=== PATIENT | male | born 1965 | race Two or more races ===

== ENCOUNTER 2018-12-02 19:42 | Emergency (ER) | payer OTHER ==
[~2018-12-02] VITALS: Ht 180.3 cm; Wt 103.0 kg
[2018-12-02 23:52] VITALS: BP 135/85
== END 2018-12-02 23:52 | disposition home or self-care (01) ==
LOC: ED 19:42
DX: G47.00 Insomnia, unspecified (principal); F41.9 Anxiety disorder, unspecified; E11.9 Type 2 diabetes mellitus without complications; F17.210 Nicotine dependence, cigarettes, uncomplicated; F32.9 Major depressive disorder, single episode, unspecified

== ENCOUNTER 2021-01-22 10:42 | Emergency (ER) | payer OTHER ==
[~2021-01-22] VITALS: Ht 185.4 cm; Wt 103.0 kg
[2021-01-22 10:52] VITALS: Ht 185.4 cm; Wt 103.0 kg
[2021-01-22 11:28] LABS: PLATELET COUNT 352 x10^3mcL (152-348); RED CELL DISTRIBUTION WIDTH 14.4 % (12.1-16.2)
[2021-01-22 11:45] LABS: CALCIUM 9.1 mg/dL (8.5-10.1); CARBON DIOXIDE 30.8 mmol/L (21-32); CHLORIDE SERUM 97 mmol/L (98-107); CREATININE SERUM 0.9 mg/dL (0.7-1.3); GFR1 > 60 mL/min; GLUCOSE SERUM 254 mg/dL (74-106); POTASSIUM SERUM 4.3 mmol/L (3.5-5.1); SODIUM SERUM 134 mmol/L (136-145)
[2021-01-22 11:49] LABS: ALBUMIN 3.6 g/dL (3.4-5.0); ALKALINE PHOSPHATASE 98 U/L (46-116); ALT/SGPT 57 U/L (16-63); AST/SGOT 29 U/L (15-37); BILIRUBIN TOTAL 0.8 mg/dL (0.20-1.00); LIPASE 192 IU/L (73-393); TOTAL PROTEIN, SERUM 8.2 g/dL (6.4-8.2)
[2021-01-22 11:56] LABS: BASOPHIL % 3.3 % (0.2-1.5)
[2021-01-22 14:00] VITALS: BP 121/82
== END 2021-01-22 14:10 | disposition home or self-care (01) ==
LOC: ED 10:42
PROVIDERS: Emergency Medicine
DX: B34.9 Viral infection, unspecified (principal); R14.0 Abdominal distension (gaseous); E11.9 Type 2 diabetes mellitus without complications; Z20.822 Contact with and (suspected) exposure to COVID-19
CPT/HCPCS: U0003